=== PATIENT | female | born 1935 | race Caucasian/White ===

== ENCOUNTER 2021-10-03 11:17 | Emergency (ER) | payer MEDICARE | END 2021-10-03 12:40 | disposition home or self-care (01) | LOC: CSHERS 11:17 | DX: U07.1 COVID-19 (principal) | CPT/HCPCS: 99282 ==

== ENCOUNTER 2021-11-17 10:21 | Outpatient (CLI) | payer MEDICARE | END 2021-11-17 10:22 | disposition home or self-care (01) | LOC: CSHMAMMO 10:21 | PROVIDERS: ATTEND Family Medicine | DX: Z13.820 Encounter for screening for osteoporosis (principal); Z78.0 Asymptomatic menopausal state; M85.851 Other specified disorders of bone density and structure, right thigh | CPT/HCPCS: 77080 ==

== ENCOUNTER 2022-05-18 14:38 | Outpatient (CLI) | payer MEDICARE | END 2022-05-18 14:39 | disposition home or self-care (01) | LOC: CSHULT 14:38 | PROVIDERS: ATTEND Orthopaedic Surgery | DX: M25.551 Pain in right hip (principal); Z96.641 Presence of right artificial hip joint | CPT/HCPCS: 93923 ==

== ENCOUNTER 2022-07-12 09:39 | Outpatient (CLI) | payer MEDICARE | END 2022-07-12 09:40 | disposition home or self-care (01) | LOC: CSHMAMMO 09:39 | PROVIDERS: ATTEND Family Medicine | DX: Z12.31 Encounter for screening mammogram for malignant neoplasm of breast (principal); Z80.3 Family history of malignant neoplasm of breast; Z85.3 Personal history of malignant neoplasm of breast; Z91.89 Other specified personal risk factors, not elsewhere classified; Z98.890 Other specified postprocedural states | CPT/HCPCS: 77063; 77067 ==

== ENCOUNTER 2023-08-17 10:28 | Outpatient (CLI) | payer MEDICARE | END 2023-08-17 10:29 | disposition home or self-care (01) | LOC: CSHMAMMO 10:28 | PROVIDERS: ATTEND Family Medicine | DX: Z12.31 Encounter for screening mammogram for malignant neoplasm of breast (principal); Z80.3 Family history of malignant neoplasm of breast; Z85.3 Personal history of malignant neoplasm of breast; Z91.89 Other specified personal risk factors, not elsewhere classified; Z98.890 Other specified postprocedural states | CPT/HCPCS: 77063; 77067 ==

== ENCOUNTER 2024-10-09 09:55 | Outpatient (CLI) | payer MEDICARE | END 2024-10-09 09:56 | disposition home or self-care (01) | LOC: CSHCT 09:55 | PROVIDERS: ATTEND Family Medicine | DX: R41.82 Altered mental status, unspecified (principal); F03.90 Unspecified dementia, unspecified severity, without behavioral disturbance, psychotic disturbance, mood disturbance, and anxiety; I63.9 Cerebral infarction, unspecified | CPT/HCPCS: 70450 ==

== ENCOUNTER 2024-10-09 10:56 | Emergency (ER) | payer MEDICARE ==
[2024-10-09 11:31] LABS: #Basophils 0.17 10x3/uL (0.0-0.2); #Eosinophils 0.24 10x3/uL (0.0-0.5); #Monocytes 0.82 10x3/uL (0.0-1.1); #Neutrophils 8.88 10x3/uL (1.5-8.4); %Basophils 1.5 % (0.0-2.0); %Eosinophils 2.1 % (0.0-6.0); %Lymphocytes 12.9 % (18.0-47.0); %Monocytes 7.0 % (0.0-10.0); %Neutrophils 76.1 % (40.0-75.0); Hematocrit 43.2 % (34.9-44.5); Hemoglobin 14.5 g/dL (12.0-15.5); Mean Corpuscular Hemoglobin 31.4 pg (27.0-33.0); Mean Corpuscular Volume 93.5 fL (81.6-98.3); Platelet Count 588 10x3/uL (150-450); Red Blood Cell (RBC) Count 4.62 10x6/uL (3.90-5.03); White Blood Cell (WBC) Count 11.66 10x3/uL (3.5-10.5)
[2024-10-09] MEDS ORDERED: Aspirin Chewable 81 MG TAB ONE (11:45)
[2024-10-09 11:59] LABS: ALT (SGPT) 18 U/L (Less than 34); AST (SGOT) 21 U/L (11-34); Albumin 3.9 g/dL (3.1-4.5); Alkaline Phosphatase 70 U/L (40-110); Anion Gap 15 mmol/L (10-20); BUN (Urea Nitrogen) 17 mg/dL (9.8-20.1); Bilirubin, Total 0.4 mg/dL (0.3-1.2); Calc. Creatinine Clearance 0 mL/min (70-130); Calcium 9.3 mg/dL (7.8-10.44); Carbon Dioxide 27 mmol/L (23-31); Chloride 105 mmol/L (98-107); Globulin 3.6 g/dL (2.4-3.5); Glucose 97 mg/dL (83-110); Potassium 4.5 mmol/L (3.5-5.1); Sodium 142 mmol/L (136-145)
[2024-10-09 12:04] LABS: Troponin I Less than 0.010 ng/mL (< 0.028)
[2024-10-09 12:15] LABS: INR-International Normal Ratio 1.1; PTT 28.5 sec (22.0-33.0); Prothrombin Time 11.7 sec (9.5-12.1)
[2024-10-09] MEDS ORDERED: Azithromycin 500 MG VIAL ONE (13:34)
[2024-10-09] MEDS ORDERED: cefTRIAXone (ROCEPHIN) 2 GM VIAL ONE (13:34)
== END 2024-10-09 15:40 | disposition home or self-care (01) ==
LOC: CSHERS 10:56
DX: I63.9 Cerebral infarction, unspecified (principal); I10 Essential (primary) hypertension; J18.9 Pneumonia, unspecified organism; R29.703 NIHSS score 3; R41.82 Altered mental status, unspecified; F03.90 Unspecified dementia, unspecified severity, without behavioral disturbance, psychotic disturbance, mood disturbance, and anxiety
CPT/HCPCS: 70450; 71045; 80053; 82962; 84484; 85025; 85610; 85730; 93005; 96365; 96367; 99284; J0456; J0696; 36415; 36416